=== PATIENT | female | born 1960 | race Hispanic/Latino ===

== ENCOUNTER → 2019-07-16 | Outpatient (CLI) | payer MEDICARE, OTHER ==
[~2019-07-16] MED LIST: CETIRIZINE HCL10 MG PO; LANTUS100 UNITS/ SQ; LYRICA75 MG PO; TYLENOL # 31 EA PO; VASOTEC5 MG PO
== END ==
LOC: MAMMO 12:39
PROVIDERS: ATTEND Family Medicine
DX: Z12.31 Encounter for screening mammogram for malignant neoplasm of breast (principal)
CPT/HCPCS: 77067

== ENCOUNTER 2023-11-06 19:37 | Emergency (ER) | payer MEDICARE, OTHER ==
[~2023-11-06] VITALS: Ht 162.6 cm; Wt 113.4 kg
[2023-11-06] MEDS ORDERED: TRAMADOL HCL 50 MG TAB PO ONE (20:45)
[2023-11-06] MEDS ORDERED: ULTRAM 50MG50 MG PO (20:59)
[2023-11-06 21:27] VITALS: BP 156/71; PULSE 82; RESP 16; TEMP 98.2; O2SAT 99
== END 2023-11-06 21:38 | disposition home or self-care (01) ==
LOC: ER 19:42
DX: S82.091A Other fracture of right patella, initial encounter for closed fracture (principal); M25.562 Pain in left knee; M25.561 Pain in right knee; W01.0XXA Fall on same level from slipping, tripping and stumbling without subsequent striking against object, initial encounter; Y93.01 Activity, walking, marching and hiking; Y92.89 Other specified places as the place of occurrence of the external cause; E11.40 Type 2 diabetes mellitus with diabetic neuropathy, unspecified; E78.5 Hyperlipidemia, unspecified; I69.351 Hemiplegia and hemiparesis following cerebral infarction affecting right dominant side
CPT/HCPCS: 99284

== ENCOUNTER 2024-12-08 11:01 | Emergency (ER) | payer MEDICARE ==
[~2024-12-08] VITALS: Ht 162.6 cm; Wt 88.5 kg
[~2024-12-08 11:01] MED LIST changes: +ULTRAM 50MG50 MG PO
[2024-12-08 11:15] VITALS: TEMP 100.6
[2024-12-08 12:34] LABS: CORONAVIRUS COVID-19 AG NEGATIVE (NEGATIVE); INFLUENZA A AG NEGATIVE (NEGATIVE); INFLUENZA B AG NEGATIVE (NEGATIVE); STREPTOCOCCUS GRP A ANTIGEN NEGATIVE (NEGATIVE)
[2024-12-08 12:57] VITALS: PULSE 98; RESP 23
[2024-12-08] MEDS ORDERED: VENTOLIN HFA18 GM INH (13:17)
[2024-12-08 13:30] VITALS: BP 184/92
[2024-12-08 13:31] VITALS: PULSE 98; RESP 27; TEMP 100.6; O2SAT 94
== END 2024-12-08 13:49 | disposition home or self-care (01) ==
LOC: ER 12:16
DX: R50.9 Fever, unspecified (principal); B34.9 Viral infection, unspecified; R09.89 Other specified symptoms and signs involving the circulatory and respiratory systems; R05.9 Cough, unspecified; R53.81 Other malaise; E11.40 Type 2 diabetes mellitus with diabetic neuropathy, unspecified; E78.5 Hyperlipidemia, unspecified; Z11.52 Encounter for screening for COVID-19; I69.351 Hemiplegia and hemiparesis following cerebral infarction affecting right dominant side
CPT/HCPCS: 71045; 83518; 87070; 99283